=== PATIENT | female | born 1970 | race Caucasian/White ===

== ENCOUNTER 2017-08-08 13:17 | Emergency (ER) | payer OTHER ==
[~2017-08-08] VITALS: Ht 160 cm; Wt 77.3 kg
[2017-08-08] MEDS ORDERED: PERTUSS(ACELL),DIPH,TET VAC/PF 0.5 ML VIAL IM ONE (14:00)
[2017-08-08 14:29] VITALS: BP 130/84
== END 2017-08-08 14:30 | disposition home or self-care (01) ==
LOC: EMS 13:23
DX: S61.214A Laceration without foreign body of right ring finger without damage to nail, initial encounter (principal); Z88.5 Allergy status to narcotic agent; Z88.0 Allergy status to penicillin; W26.0XXA Contact with knife, initial encounter; Y93.89 Activity, other specified; Y92.89 Other specified places as the place of occurrence of the external cause; Y99.8 Other external cause status
CPT/HCPCS: 12001; 90471; 90715; 99283